=== PATIENT | female | born 2000 | race Caucasian/White ===

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

== ENCOUNTER 2021-01-13 19:23 | Emergency (ER) | payer OTHER, SELFPAY ==
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
[2021-01-13 19:38] VITALS: BP 99/58; PULSE 99; RESP 18; TEMP 37.6; O2SAT 100
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
== END 2021-01-13 20:06 | disposition home or self-care (01) ==
PROVIDERS: Emergency Provider Nurse Practitioner
DX: M79.631 Pain in right forearm (principal); S39.012A Strain of muscle, fascia and tendon of lower back, initial encounter; V49.50XA Passenger injured in collision with unspecified motor vehicles in traffic accident, initial encounter; S80.812A Abrasion, left lower leg, initial encounter; F17.210 Nicotine dependence, cigarettes, uncomplicated
CPT/HCPCS: 72100; 73090; 99214; G0463

== ENCOUNTER 2021-01-22 04:52 | Emergency (ER) | payer OTHER, SELFPAY ==
[2021-01-22 04:56] VITALS: BP 119/68; PULSE 76; RESP 16; TEMP 37.1; O2SAT 98
[2021-01-22 05:00] VITALS: BP 121/74; PULSE 77; O2SAT 98
[2021-01-22] MEDS: ONDANSETRON HCL ODT 4 MG TABLET PO (05:25)
[2021-01-22] MEDS: HYDROcodone/acetaminophen (*CRX) 5-325 MG TABLET 1 TAB PO (05:26)
--- NOTE | 2021-01-22 05:29 | ED.DENTAL ---
HPI - Dental/Oral General Chief complaint: Dental/Oral Stated complaint: Facial swelling Time Seen by Provider: 01/22/21 04:55 Source: patient and RN notes reviewed Mode of arrival: ambulatory Limitations: no limitations History of Present Illness HPI Narrative: This is a 20 year old female who presents for evaluation of left gum and facial swelling. She noticed left upper gum swelling 2 days ago. Her swelling has worsen and she now has swelling to her left face. She denies fever, chills, nausea or vomiting. She denies teeth pain. Related Data Home Medications Medication Instructions Recorded Confirmed Mirena 01/13/21 Allergies Allergy/AdvReac Type Severity Reaction Status Date / Time dextroamphetamine Allergy Mild Unknown Verified 01/22/21 05:02 AMPHETAMINE ASPARTATE Allergy Mild Unknown Uncoded 01/22/21 05:02 AMPHETAMINE SULFATE Allergy Mild Unknown Uncoded 01/22/21 05:02 Review of Systems Review of Systems: All systems reviewed & are unremarkable except as noted in HPI and below PMFSH Past Medical History Medical History ADD (attention deficit disorder) Social History Social History (Updated 01/13/21 @ 19:43 by Jannette Duncan CNP) Smoking status: Current some day smoker Gender identity (if verbalized by the patient): Female Exam Const: General: no acute distress and alert Orientation/consciousness: patient oriented x3 HENMT: Face and sinus: other (left cheek swelling) Mouth: Yes lip normal, Yes tongue normal, Yes moist mucous membranes and Yes other (drainage from fluctuant area of gum at teeth 10,11) Teeth and gingiva: gingiva abnormal with purulent discharge and tender Throat: posterior oropharynx normal, tonsils normal and uvula midline Eyes: Pupils: Equal, round and reactive pupils present EOM: EOMs intact bilaterally Resp: Effort & Inspection: normal respiratory effort and no retractions Auscultation: clear to auscultation bilaterally Cardio: Rate: regular rate Rhythm: regular rhythm Heart sounds: no murmurs GI: GI Palp: Yes Soft to palpation, No Tenderness to palpation present (GI) and No Guarding due to palpation present (GI) Auscultation: normal bowel sounds Skin: General skin exam: normal color Rashes: no rashes Neuro: General: patient oriented x3, moves all extremities and CN's II-XI intact bilaterally Course Reevaluation(s) Reevaluation #1: I discussed with patient discharge plan to discharge with antibiotics and pain medication. She was instructed to perform warm compresses. Date: 01/22/21 Time: 06:52 Vital Signs Vital signs: Vital Signs Temperature 98.8 F 01/22/21 04:56 Pulse Rate 76 01/22/21 04:56 Respiratory Rate 16 01/22/21 04:56 Blood Pressure 119/68 01/22/21 04:56 Pulse Oximetry 98 01/22/21 04:56 Temperature 98.8 F 01/22/21 04:56 Pulse Rate 64 01/22/21 07:07 Respiratory Rate 16 01/22/21 07:07 Blood Pressure 115/76 01/22/21 07:07 Pulse Oximetry 100 01/22/21 07:07 Procedures Abscess I/D oral: Date of Incision: 01/22/21 Time of Incision: 06:48 Side (if applicable): left (gum at tooth 10) Local Anesthetic: lidocaine 1% Amount of anesthesia used (mL): 1 Technique: incised with #11 blade Amount of fluid expressed (mL): 2 Irrigation: Yes Packing used?: none I&D Results: Pus and Blood Discharge Plan Discharge Clinical Impression: Abscess of upper gingiva Patient Disposition: Home, Self-Care Condition: Stable Instructions: Antibiotic Form, Dental Abscess (ED) Additional Instructions: Perform warm compresses to your left face for 15 minutes 4 times a day. Take antibiotics as prescribe. REturn to ER if your swelling worsens. You will need to follow up with an oral surgeon. Prescriptions: New clindamycin HCl 300 mg capsule 300 mg PO Q6H 10 Days Qty: 40 RF: 0 chlo
[2021-01-22 05:30] VITALS: BP 127/79; PULSE 81; O2SAT 98
[2021-01-22] MEDS: CLINDAMYCIN 600 MG/D5W 50 ML 600 MG/50 ML PIGGYBACK 100 MG IVPB (05:55)
[2021-01-22 06:00] VITALS: BP 111/74; PULSE 75; O2SAT 96
[2021-01-22 07:07] VITALS: BP 115/76; PULSE 64; RESP 16; O2SAT 100
== END 2021-01-22 07:08 | disposition home or self-care (01) ==
PROVIDERS: Emergency Provider General Practice; PCP Pediatrics
DX: K05.319 Chronic periodontitis, localized, unspecified severity (principal); F17.200 Nicotine dependence, unspecified, uncomplicated
CPT/HCPCS: 41800; 96365; 99284; A9270

== ENCOUNTER 2022-06-17 14:47 | Emergency (ER) | payer OTHER, SELFPAY | END 2022-06-17 15:00 | disposition left against medical advice (07) | PROVIDERS: Emergency Provider Nurse Practitioner; PCP Pediatrics | DX: Z53.21 Procedure and treatment not carried out due to patient leaving prior to being seen by health care provider (principal) | CPT/HCPCS: 99199 ==

== ENCOUNTER 2022-06-18 18:14 | Emergency (ER) | payer OTHER, SELFPAY ==
[2022-06-18 18:15] VITALS: BP 95/64; PULSE 74; RESP 18; TEMP 36.2; O2SAT 100
--- NOTE | 2022-06-18 18:40 | ED.SKABFB ---
HPI - Skin/Abscess/Foreign Bdy General Chief complaint: Skin/Abscess/Foreign Body Stated complaint: bump on head Time Seen by Provider: 06/18/22 18:34 History of Present Illness HPI narrative: Patient is a 21-year-old female here for evaluation of a bump on her head. Patient states that the bump has been there since but last week she struck the front of her head against a shelf, and since then the bump has increased in size and has become tender. Patient denies loss of consciousness at initial head injury. No vision changes, nausea, vomiting, recent blood thinners. She has felt well aside from the painful bump. Related Data Home Medications Medication Instructions Recorded Confirmed Mirena 01/13/21 Allergies Allergy/AdvReac Type Severity Reaction Status Date / Time dextroamphetamine Allergy Mild Unknown Verified 06/18/22 18:29 AMPHETAMINE ASPARTATE Allergy Mild Unknown Uncoded 06/18/22 18:29 AMPHETAMINE SULFATE Allergy Mild Unknown Uncoded 06/18/22 18:29 Review of Systems Review of Systems: Gen.: Denies fevers or chills Eyes: Denies eye pain or visual change ENT: Denies congestion Respiratory: Denies shortness of breath or cough CV: Denies chest pain or palpitations GI: Denies abdominal pain nausea, emesis or diarrhea denies burning, urgency, frequency or hematuria Musculoskeletal: Denies back pain or muscle pain Neuro: Denies numbness, tingling, weakness or focal weakness Skin: Reports a bump to her head. Except as documented, all other systems reviewed and negative PMFSH Past Medical History Medical History ADD (attention deficit disorder) Social History Social History (Updated 01/13/21 @ 19:43 by Jannette Duncan, [employer] MA[employer]GER) Smoking status: Current some day smoker Gender identity (if verbalized by the patient): Female Exam Narrative: Gen: Alert, oriented, no acute distress Eyes: EOMI, no icterus Pulm: Respirations even and unlabored, symmetric thorax expansion, no audible stridor or visible cyanosis CV: Regular rate per telemetry GI: No distension, no voluntary/involuntary guarding Neuro: AOx4, moves all extremities without apparent difficulty or weakness, follows commands Skin: Patient has a 1 x 1 cm circular nodule to her anterior scalp that is nontender to palpation; no active bleeding, underlying fluctuance or induration. No surrounding erythema. Psych: Normal mood/affect, insight/judgement good, adequate fund of knowledge, recent/remote memory intact Course Vital Signs Vital signs: Vital Signs Temperature 97.2 F L 06/18/22 18:15 Pulse Rate 74 06/18/22 18:15 Respiratory Rate 18 06/18/22 18:15 Blood Pressure 95/64 L 06/18/22 18:15 Pulse Oximetry 100 06/18/22 18:15 Oxygen Delivery Room Air 06/18/22 18:15 Temperature 97.2 F L 06/18/22 18:15 Pulse Rate 74 06/18/22 18:15 Respiratory Rate 18 06/18/22 18:15 Blood Pressure 95/64 L 06/18/22 18:15 Pulse Oximetry 100 06/18/22 18:15 Oxygen Delivery Room Air 06/18/22 18:15 MDM - Skin/Abscess/Foreign Bdy MDM Narrative Medical decision making narrative: 21-year-old female here for evaluation of what appears to be a nodule or lipoma to her frontal scalp region after bumping her head last week. She is nontoxic-appearing and has normal vital signs, does not meet criteria for head imaging at this time. Patient was reassured, she was encouraged to follow-up with her primary care doctor; understands she may need head imaging on a nonemergent basis if the nodule persists and does not improve within the next several weeks. Given return precautions and she voiced understanding. Discharge Plan Discharge Clinical Impression: Nodule of skin of head Patient Disposition: Home, Self-Care Condition: Stable Instructions: Antibiotic Form, Head Injury (ED) Additional Instructions: The bump on your head is likely from hitting your head earlier
== END 2022-06-18 18:52 | disposition home or self-care (01) ==
PROVIDERS: Emergency Provider Physician Assistant; PCP Pediatrics
DX: R22.0 Localized swelling, mass and lump, head (principal)
CPT/HCPCS: 99282

== ENCOUNTER 2022-07-08 03:08 | Emergency (ER) | payer OTHER, SELFPAY ==
--- NOTE | ~2022-07-08 | CT_ITS ---
EXAMINATION: CT abdomen pelvis w con DATE: 07/08/2022 06:40 INDICATION: Right flank pain. TECHNIQUE: Computed tomography (CT) of the abdomen and pelvis was performed with 100 mL Omnipaque 350 intravenous contrast. Automated exposure control and iterative reconstruction technique were employe d. The dose-length product was 176.45 mGy-cm. COMPARISON: None. FINDINGS: The visualized portions of the lung bases are clear without pneumonia or pleural effusion. The heart size is normal. No pericardial effusion. The liver demonstrates focal steatosis adjacent to the falciform ligament. The gallbladder, spleen, pancreas, adrenal glands, and left kidney are romario l. Right kidney demonstrates a striated nephrogram, consistent with pyelonephritis. An anterior lower pole of right kidney, there is a 1.6 cm hypodense mass, likely an early abscess. There is asymmetric edema around right kidney. There is an intrauterine device in expected position. There are no dilate d loops of bowel. The appendix is normal. There is a 2.9 cm ruptured corpus luteum cyst in right ovar y. There is a small volume of pelvic ascites. There are no pathologically enlarged lymph nodes. L4 is a limbus vertebra. IMPRESSION: 1. Right-sided pyelonephritis with 1.6 cm mass, likely an early abscess. 2. 2.9 cm ruptured corpus luteum cyst in right ovary with small volume of ascites. Reviewed, dictated and finalized at location A. [employer] IMPRESSION: 1. Right-sided pyelonephritis with 1.6 cm mass, likely an early abscess. 2. 2.9 cm ruptured corpus luteum cyst in right ovary with small volume of ascit es.
[2022-07-08 03:54] LABS: Basophils Absolute Auto 0.1 K/mm3 (0.0-0.1); Basophils Percent Auto 0.4 % (0.2-1.2); Eosinophils Percent Auto 0.1 % (0-4.4); Hematocrit 36.9 % (37.0-47.0); Hemoglobin 12.9 g/dL (12.0-15.0); Immature Granulocyte Absolute 0.12 K/mm3 (0.00-0.031); Immature Granulocyte Percent A 0.6 % (0-0.5); Lymphocytes Absolute Auto 0.56 K/mm3 (0.9-3.2); Lymphocytes Percent Auto 2.9 % (18.3-44.2); Mean Corpuscular Hemoglobin 32.5 pg (26-34); Mean Corpuscular Volume 92.9 fl (80-100); Mean Platelet Volume 11.6 fl (7.4-10.4); Monocytes Absolute Auto 1.4 K/mm3 (0.1-0.6); Monocytes Percent Auto 7.2 % (2.6-8.5); Neutrophils Percent Auto 88.8 % (45.5-73.1); Platelet Count Result 156 k/mm3 (150-375); Red Blood Count 3.97 M/mm3 (4.2-5.4); Red Cell Distribution Width 11.1 % (11.5-14.5); White Blood Count 19.2 K/mm3 (4.5-10.0)
[2022-07-08 04:00] LABS: Alanine Aminotransferase 18 U/L (6-35); Albumin Level 4.7 g/dL (3.5-5.1); Alkaline Phosphatase 90 U/L (38-126); Anion Gap 10 mmol/L (8-16); Aspartate Amino Transferase 23 U/L (14-36); Bilirubin,Total 1.3 mg/dL (0.2-1.3); Blood Urea Nitrogen 14 mg/dL (7-17); Carbon Dioxide 27 mmol/L (22-30); Chloride 100 mmol/L (98-107); Estimated Glomerular Filt Rate > 60; Glucose 130 mg/dL (65-110); Lipase 17 U/L (23-300); Potassium 3.8 mmol/L (3.4-5.0); Sodium 137 mmol/L (137-145)
[2022-07-08 04:22] VITALS: BP 98/64; PULSE 116; RESP 16; TEMP 36.7; O2SAT 99
[2022-07-08 04:55] LABS: Appearance Urine Clear (Clear); Bilirubin Urine 2+ (Negative); Blood Urine 3+ (Negative); Glucose Urine UA Trace mg/dL (Negative); Ketones Urine 1+ mg/dL (Negative); Leukocyte Esterase Ur Trace LEU/UL (Negative); Nitrate Urine Positive (Negative); Protein Urine 2+ mg/dL (Negative); Specific Grav Ur >= 1.030 (1.001-1.035)
[2022-07-08 05:07] LABS: Bacteria Urine 1+ /hpf; Mucus Urine Heavy /lpf; RBC Urine >75 /hpf (0-2); Squamous Epithelial Cell Urine Many /hpf (Few); WBC Urine >75 /hpf
--- NOTE | 2022-07-08 05:12 | ED.ABDPAIN ---
HPI - Abdominal Pain General Chief Complaint: Abdominal Pain Stated Complaint: abdominal pain Time Seen by Provider: 07/08/22 05:12 Source: patient Mode of arrival: ambulatory Limitations: no limitations History of Present Illness HPI narrative: Patient is a 21-year-old female presenting for evaluation of fever, nausea, vomiting, right-sided abdominal pain and right flank pain. Patient reports worsening symptoms over the past week. Pain is described as aching in nature with a rigid abdomen. Patient reports significant discomfort. She reports multiple episodes of nonbloody, nonbilious emesis and has been unable to tolerate any solid or liquid intake. Patient reports subjective fever, chills, myalgias. She reports aching right lower flank pain which is at times severe in nature and exacerbated with movement. She denies fall or injury. She denies dysuria or hematuria. She denies urinary frequency. Patient denies history of nephrolithiasis. She does have a history of pyelonephritis for which she required hospitalization in the past. Patient denies chest pain, cough, dyspnea. She denies rhinorrhea, congestion. No recent COVID or influenza diagnoses. Patient has a Mirena IUD in place. Does not believe she is . Was seen at her SHOP MECHANIC's office this week for test that she does not know the results of. Related Data Home Medications Medication Instructions Recorded Confirmed Mirena 01/13/21 Allergies Allergy/AdvReac Type Severity Reaction Status Date / Time dextroamphetamine Allergy Mild Unknown Verified 06/18/22 18:29 AMPHETAMINE ASPARTATE Allergy Mild Unknown Uncoded 06/18/22 18:29 AMPHETAMINE SULFATE Allergy Mild Unknown Uncoded 06/18/22 18:29 Review of Systems Review of Systems: CONSTITUTIONAL: Reports fever and chills EYES: Denies visual changes, redness, or discharge. ENT: Denies rhinorrhea, congestion, sore throat, or otalgia. CARDIOVASCULAR: Denies chest pain, palpitations, or edema. RESPIRATORY: Denies cough or dyspnea. GASTROINTESTINAL: Reports abdominal pain, nausea and vomiting GENITOURINARY: Denies dysuria or hematuria. SKIN: Denies rash or itching. MUSCULOSKELETAL: Reports right flank pain and myalgias NEUROLOGIC: Reports headache, denies focal weakness or numbness PMFSH Past Medical History Medical History ADD (attention deficit disorder) Social History Social History Smoking status: Current some day smoker Gender identity (if verbalized by the patient): Female Exam Narrative: GENERAL: Awake, alert, conversant HEAD: Normocephalic, atraumatic. EYES: PERRLA and EOMI. ENT: Nares clear, no rhinorrhea or epistaxis. Mucous membranes moist. NECK: Supple. CHEST: No respiratory distress, breathing even and non labored, lungs are clear to auscultation bilaterally HEART: Tachycardic rate, sinus rhythm ABDOMEN: No significant distention, tender to palpation in the right lower quadrant, right flank tenderness, positive guarding, no rigidity EXTREMITIES: Normal range of motion. No edema. SKIN: Warm, dry, no rash. NEURO:No focal deficits. Alert and oriented x3 Course Vital Signs Vital signs: Vital Signs Temperature 36.7 C 07/08/22 04:22 Pulse Rate 116 H 07/08/22 04:22 Respiratory Rate 16 07/08/22 04:22 Blood Pressure 98/64 L 07/08/22 04:22 Pulse Oximetry 99 07/08/22 04:22 Oxygen Delivery Room Air 07/08/22 04:22 Temperature 36.6 C 07/08/22 07:16 Pulse Rate 105 H 07/08/22 07:16 Respiratory Rate 16 07/08/22 07:16 Blood Pressure 98/58 L 07/08/22 07:16 Pulse Oximetry 100 07/08/22 07:16 Oxygen Delivery Room Air 07/08/22 04:22 MDM - Abdominal Pain MDM Narrative Medical decision making narrative: Patient presented for evaluation of right flank pain, subjective fever, chills, nausea and vomiting. IV access obtained and labs
[2022-07-08 05:19] LABS: Add Urine Microscopic? YES; Color Urine Dark Yellow (Yellow)
[2022-07-08] MEDS: ONDANSETRON INJ 4 MG/2 ML VIAL IV PUSH (06:58)
[2022-07-08] MEDS: SODIUM CHLORIDE 0.9% IV 1,000 ML 999 ML IV CONT (07:02)
[2022-07-08] MEDS: ACETAMINOPHEN 500 MG TABLET 1000 MG PO (07:04)
--- NOTE | 2022-07-08 07:11 | PC.NURSE ---
Report given to DIO Hammer.
[2022-07-08 07:16] VITALS: BP 98/58; PULSE 105; RESP 16; TEMP 36.6; O2SAT 100
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
[2022-07-08 08:30] VITALS: BP 98/51; PULSE 90; RESP 12; O2SAT 98
--- NOTE | 2022-07-08 08:31 | PC.NURSE ---
reg diet food tray ordered
[2022-07-08] MEDS: LACTATED RINGERS 1,000 ML 125 ML IV CONT (08:47)
[2022-07-08 08:58] LABS: Influenza A QL RT-PCR Negative (Negative); Influenza B QL RT-PCR Negative (Negative); RSV RNA, RT-PCR Negative (Negative); SARS-CoV-2 RNA PCR Negative
--- NOTE | 2022-07-08 12:49 | PM.IMHP ---
H&P: HPI History of Present Illness Date/Time: 07/08/22 12:49 Chief Complaint: Abdominal pain Narrative: This is a 21-year-old female patient who came to the emergency room for evaluation of fever nausea and right-sided abdominal pain as well as right flank pain. The symptoms have been getting worse over the last week. The patient stated is very achy and she is not able to keep down any solid food or liquid. She has fever chills and myalgias. She stated that she has had a history of pyelonephritis in the past but has never had any kidney stones. WBCs is 19.2. Glucose is 130. The patient is positive for UTI. The patient is negative for influenza A/B RSV and COVID. CT scan was read as right-sided pyelonephritis with 1.6 cm mass likely an early abscess. 2.9 cm ruptured corpus luteum cyst in the right ovary was small volume of ascites. The patient was given a dose of Rocephin, Tylenol, Zofran and IV fluids in the emergency room. Urology has seen the patient and recommended that she have a repeat imaging in 4-6 weeks to document resolution of the kidney abnormality. Urology noted they will not actively follow. I reviewed all of the results with the patient and her significant other. Initially the patient was wanting to go home however explained that her white count is double the normal and that if she goes home and is nauseated she may not be able to keep down her antibiotics and pain medication. The patient agreed to be transferred to [facility] as this hospital has no beds at this time. I did leave a message for poonam Mcarthur and then I called her back at 1340 and she is septic the patient to [facility]. The patient will be transferred to [facility] so this is a short-stay summary. Review of Systems Review of Systems: See HPI All systems reviewed & are unremarkable except as noted in HPI and below Constitutional: Constitutional: Reports as per HPI and Reports no additional constitutional complaints Eyes: Eyes: Reports as per HPI and Reports no additional eye complaints ENT: Reports system reviewed and no additional complaints, except as documented and Reports Normal hearing present Cardiovascular: Cardiovascular: Reports no additional cardiovascular complaints Respiratory: Respiratory: Reports no additional respiratory complaints and Reports no additional respiratory complaints Gastrointestinal: Gastrointestinal: Reports as per HPI and Reports no additional gastrointestinal complaints Musculoskeletal: Musculoskeletal: Reports no additional musculoskeletal complaints Integumentary/Breasts: Skin/Breast: Reports system reviewed and no additional complaints, except as docu and Reports as per HPI Neurologic: Reports system reviewed and no additional complaints, except as documented, Reports as per HPI and Reports Normal hearing present Psychiatric: Psychiatric: Reports no additional psychiatric complaints and Reports as per HPI Endocrine: Endocrine: Reports no additional endocrine complaints Hematologic/Lymphatic: Hematologic/Lymphatic: Reports no additional hematologic/lymphatic complaints Allergic/Immunologic: Allergic/Immunologic: Reports no additional allergic/immunologic complaints PMFSH Past Medical History Medical History (Updated 07/08/22 @ 14:23 by Kathy Eldridge NP) ADD (attention deficit disorder) IUD (intrauterine device) in place Tobacco abuse Surgical History Surgical History H/O adenoidectomy History of tonsillectomy Family History Family History Mother Cancer Social History Social History (Updated 07/08/22 @ 14:25 by Kathy Eldridge NP) Social History: She has a significant other. 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 The patient does smoke marijuana occasionally and does vape nicotine. She denies any alcohol or other illicit drugs. She has no po
== END 2022-07-08 15:05 | disposition critical access hospital (66) ==
LOC: ANHED 07:01 → ANH3MEDSUR 10:15
PROVIDERS: Emergency Provider Emergency Medicine; PCP Pediatrics; Visit Provider Internal Medicine
DX: A41.9 Sepsis, unspecified organism (principal); N12 Tubulo-interstitial nephritis, not specified as acute or chronic; N15.1 Renal and perinephric abscess; Z20.822 Contact with and (suspected) exposure to COVID-19; Z97.5 Presence of (intrauterine) contraceptive device; F17.290 Nicotine dependence, other tobacco product, uncomplicated
CPT/HCPCS: 36415; 74177; 80053; 81001; 81025; 83605; 83690; 85025; 87040; 87077; 87086; 87186; 87637; 96361; 96365; 96375; 99285; A9270; J0696; J2405; J7030; J7120; Q9967

== ENCOUNTER 2022-07-08 16:58 | Observation (INO) | payer OTHER, SELFPAY ==
--- NOTE | 2022-07-08 17:34 | PC.NURSE ---
Patient arrived to unit via [facility] at 1535 on stretcher, accompanied by EMS. Patient able to transfer independently from stretcher to bed without difficulty. Patient orientated to room, call light, and hospital environment, including visiting hours. Patient voiced understanding. Patient denies any serious medical history. No valuable belongings noted.
[2022-07-08] MEDS: SODIUM CHLORIDE 0.9% IV 1,000 ML 150 ML IV CONT (18:05)
[2022-07-08 18:11] VITALS: TEMP 38.9
[2022-07-08] MEDS: ACETAMINOPHEN 325 MG TABLET 650 MG PO (18:11)
--- NOTE | 2022-07-08 19:55 | PC.NURSE ---
Admission assessment charting and medication administration delayed due to [facility] not discharging patient from their system. Calls placed to [facility] x 2 by charge nurse, resulting in eventual discharge from [facility] and admission to [facility].
[2022-07-08 20:00] VITALS: O2SAT 99
[2022-07-08] MEDS: ONDANSETRON INJ 4 MG/2 ML VIAL IV PUSH (20:32)
[2022-07-08 23:11] VITALS: BP 102/46; PULSE 101; RESP 16; TEMP 36.2; O2SAT 99
[2022-07-09 05:20] LABS: Hematocrit 30.1 % (35.0-49.0); Hemoglobin 10.2 g/dL (12.0-15.0); Mean Corpuscular HGB Conc 33.9 g/dL (32.0-36.0); Mean Corpuscular Hemoglobin 32.1 pg (27.0-31.0); Mean Corpuscular Volume 94.7 fL (78.0-102.0); Mean Platelet Volume 12.1 fl (9.2-11.8); Platelet Count Result 125 K/mm3 (150-420); Red Blood Count 3.18 M/mm3 (4.20-5.40); Red Cell Distribution Width 11.1 % (11.6-14.4); White Blood Count 13.2 K/mm3 (4.8-10.8)
[2022-07-09 05:38] LABS: Alanine Aminotransferase 11 U/L (14-59); Albumin Level 3.1 g/dL (3.4-5.0); Alkaline Phosphatase 67 U/L (46-116); Anion Gap 10 mmol/L (8-16); Aspartate Amino Transferase 12 U/L (15-37); Bilirubin,Total 0.5 mg/dL (0.00-1.00); Blood Urea Nitrogen 8 mg/dL (7-18); Calcium 8.7 mg/dL (8.5-10.1); Carbon Dioxide 26 mmol/L (21-32); Chloride 102 mmol/L (98-108); Estimated CRCL calculation 76 ml/min; Estimated Glomerular Filt Rate > 60; Glucose 96 mg/dL (70-99); Osmolality Calculated 284 mOsm/kg (285-295); Potassium 3.7 mmol/L (3.5-5.1); Sodium 138 mmol/L (136-145); Total Protein 6.8 g/dL (6.4-8.2)
--- NOTE | 2022-07-09 06:10 | PC.NURSE ---
Frida Mcarthur NP, notified of pt's sepsis risk; No new orders at this time.
[2022-07-09 08:00] VITALS: BP 94/53; PULSE 98; RESP 17; TEMP 36.9; O2SAT 100
--- NOTE | 2022-07-09 09:28 | PM.SD2 ---
Same Day Admit/Disch: HPI History of Present Illness Chief complaint: obs from [place] [facility] Narrative: This is a 21-year-old female patient who went to the emergency room at [facility] for evaluation of fever nausea and right-sided abdominal pain as well as right flank pain.? The symptoms have been getting worse over the last week.? patient appetite had decreased she had developed nausea vomiting? with fever chills and myalgias.? She has had a history of pyelonephritis in the past .? WBCs is 19.2.? Glucose is 130.? The patient is positive for UTI.? The patient is negative for influenza A/B RSV and COVID.? CT scan was read as right-sided pyelonephritis with 1.6 cm mass likely an early abscess.? 2.9 cm ruptured corpus luteum cyst in the right ovary was small volume of ascites.? The patient was given a dose of Rocephin, Tylenol, Zofran and IV fluids in the emergency room.? Urology has seen the patient and recommended that she have a repeat imaging in 4-6 weeks to document resolution of the kidney abnormality.? Urology noted they will not actively follow.? I reviewed all of the results with the patient and her significant other.? Initially the patient was wanting to go home however explained that her white count is double the normal and that if she goes home and is nauseated she may not be able to keep down her antibiotics and pain medication.? The patient agreed to be transferred to [facility] as this hospital has no beds at this time.? the patient was transferred to our facility [place] [id number] she would continue to receive antibiotics. She did have a reaction to azithromycin now listed in the allergy. Patient wbc's decreased to 13, her nausea vomiting has resolved in her right side pain is controlled. Patient will discharge home with antibiotics Levaquin x5 days Zofran and hydrocodone. I did inform patient it is recommended that she follow-up with primary care physician he get a repeat imaging in 4-6 weeks. The patient denies SOB, CP, palpitation, extremity numbness, lightheadedness, dizziness, constipation, diarrhea, chills, or fever. Discharge instructions reviewed with patient, as well as provided in writing per nursing staff. The instructions also include specific and strict return/GO TO THE ER as well as f/u information. All questions have been answered, and the patient and/or family deny any further questions with discharge and discharge plan. patient does have right-sided and back tenderness that is better controlled and improved. [facility] Past Medical History Medical History (Updated 07/09/22 @ 09:36 by SPARKLE Greer) ADD (attention deficit disorder) IUD (intrauterine device) in place Tobacco abuse Surgical History Surgical History H/O adenoidectomy History of tonsillectomy Family History Family History Mother Cancer Social History Social History (Updated 07/08/22 @ 14:25 by Kathy Eldridge NP) Social History: She has a significant other. 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 The patient does smoke marijuana occasionally and does vape nicotine. She denies any alcohol or other illicit drugs. She has no power employment law attorney Code status full code Years smoked: 2 Smoking status: Smoker, status unknown Tobacco type: e-cigarettes/vaping Smoking end date: 07/05/22 Alcohol intake: never Substance use: former Substance use type: marijuana Other substance usage details: used marijuan several days ago but stopped when began to feel ill Last use: 3 days ago Lack of Transportation: No Lack of Food: Never True Current Housing: I Have Housing Concerned About Future Housing: No Difficulty Paying Gas/Electric Bills: No Difficulty Paying for Meds: No Currently Unemployed: No Education: High School Diploma/GED Difficulty w/ Childcare or Family Care: No Ge
--- NOTE | 2022-07-09 11:31 | PC.NURSE ---
Discharge packet reviewed with patient and her mother. All questions answered. Pt transported via wheelchair to [facility] lobby for discharge.
--- NOTE | 2022-07-11 14:02 | PC.NURSE ---
Pt states she received and understood her discharge instructions. Pt has no other comments.
== END 2022-07-09 11:25 | disposition home or self-care (01) ==
PROVIDERS: Nurse Practitioner; Admitting Provider Internal Medicine; Visit Provider Internal Medicine
DX: N10 Acute pyelonephritis (principal); N83.11 Corpus luteum cyst of right ovary; F98.8 Other specified behavioral and emotional disorders with onset usually occurring in childhood and adolescence; F17.290 Nicotine dependence, other tobacco product, uncomplicated; Z20.822 Contact with and (suspected) exposure to COVID-19
CPT/HCPCS: 36415; 80053; 85027; 96360; 96361; 96365; 96366; 96367; 96375; 99199; A9270; G0378; J0456; J0696; J2405; J7030

== ENCOUNTER 2022-10-18 20:15 | Emergency (ER) | payer SELFPAY ==
[2022-10-18 20:16] VITALS: BP 124/71; PULSE 105; RESP 15; TEMP 36.3; O2SAT 99
--- NOTE | 2022-10-18 21:25 | PC.NURSE ---
patient left stating wait was too long. patient alert and oriented x4.
== END 2022-10-18 22:39 | disposition left against medical advice (07) ==
DX: S01.85XA Open bite of other part of head, initial encounter (principal); W54.0XXA Bitten by dog, initial encounter
CPT/HCPCS: 99199